=== PATIENT | female | born 1955 | race Caucasian/White ===

== ENCOUNTER 2023-05-14 10:11 | Inpatient (IN) | payer OTHER ==
[2023-05-14] MEDS ORDERED: Acetaminophen 325 MG TAB PO PRN (16:12)
[2023-05-14] MEDS ORDERED: hydrOXYzine 25 MG TAB PO PRN (16:12)
[2023-05-14] MEDS ORDERED: HYDROcodone/Acetaminophen 5/325 mg Tablet PO PRN (16:12)
[2023-05-14] MEDS ORDERED: Bisacodyl 5 MG TAB PO PRN (16:18)
[2023-05-14] MEDS ORDERED: Ondansetron ODT 4 MG TAB SL PRN (16:18)
[2023-05-14 19:38] VITALS: BMI 26.4
[2023-05-14] MEDS: Phenytoin Extended Release 100 MG CAP PO SCH (20:50)
[2023-05-14] MEDS: Senokot S 8.6-50 MG TAB PO SCH (20:50)
[2023-05-15 06:00] LABS: Hematocrit 38.6 % (36.0-47.0); Hemoglobin 12.7 g/dL (12.0-16.0); Mean Corpuscular Hemoglobin 34.4 pg (27.0-31.0); Red Blood Cell (RBC) Count 3.68 mill/uL (4.20-5.40); White Blood Cell (WBC) Count 7.8 10x3/uL (4.8-10.8)
[2023-05-15 06:01] LABS: #Basophils 0.1 thou/uL (0.0-0.2); #Eosinphils 0.3 thou/uL (0.0-0.7); #Lymphocytes 1.8 thou/uL (1.20-3.40); #Monocytes 0.7 thou/uL (0.11-0.59); #Neutrophils 4.9 thou/uL (1.40-6.50); %Basophils 1.1 % (0.0-1.0); %Eosinophils 3.7 % (0.0-10.0); %Lymphocytes 23.5 % (21.0-51.0); %Monocytes 8.9 % (0.0-10.0); %Neutrophils 62.8 % (42.0-75.0); Manual Diff?? NO; Mean Corpuscular HGB CONC 32.9 g/dL (32.0-36.0); Mean Platelet Volume 7.3 fL (7.4-10.4); Platelet Count 206 10x3/uL (130-400); RBC Distribution Width 12.2 % (11.5-14.5)
[2023-05-15 06:16] LABS: ALT (SGPT) 45 U/L (8-55); AST (SGOT) 20 U/L (5-34); Albumin 2.9 g/dL (3.4-4.8); Alkaline Phosphatase 64 U/L (40-110); Anion Gap 12 mmol/L (10-20); BUN (Urea Nitrogen) 13 mg/dL (9.8-20.1); Bilirubin, Total 0.2 mg/dL (0.2-1.2); Calc. Creatinine Clearance 112 mL/min (70-130); Calcium 8.4 mg/dL (7.8-10.44); Carbon Dioxide 29 mmol/L (23-31); Chloride 103 mmol/L (98-107); Estimated GFR 96; Globulin 2.4 g/dL (2.4-3.5); Glucose 88 mg/dL (80-115); Potassium 3.8 mmol/L (3.5-5.1); Protein, Total 5.3 g/dL (5.8-8.1); Sodium 140 mmol/L (136-145)
[2023-05-15] MEDS: Hydrochlorothiazide 25 MG TAB PO SCH (08:26)
[2023-05-15] MEDS: Losartan Potassium 50 MG TAB PO SCH (08:26)
[2023-05-15] MEDS: Senokot S 8.6-50 MG TAB PO SCH ×2 (08:26→21:14)
[2023-05-15] MEDS: predniSONE 20 MG TAB PO SCH (08:26)
[2023-05-15] MEDS: AMITIZA 24 MCG PO SCH (08:35)
[2023-05-15] MEDS: Phenytoin Extended Release 100 MG CAP PO SCH (21:13)
[2023-05-16] MEDS: Fluticasone Propionate Nasal Spray 16 gm Bottle NASAL SCH (08:39)
[2023-05-16] MEDS: Losartan Potassium 50 MG TAB PO SCH (08:41)
[2023-05-16] MEDS: Senokot S 8.6-50 MG TAB PO SCH ×2 (08:42→20:17)
[2023-05-16] MEDS: Hydrochlorothiazide 25 MG TAB PO SCH (08:42)
[2023-05-16] MEDS: predniSONE 20 MG TAB PO SCH (08:43)
[2023-05-16] MEDS: AMITIZA 24 MCG PO SCH (08:50)
[2023-05-16] MEDS ORDERED: Bisacodyl 10 MG SUPP PR PRN (12:29)
[2023-05-16] MEDS: Phenytoin Extended Release 100 MG CAP PO SCH (20:17)
[2023-05-17] MEDS: AMITIZA 24 MCG PO SCH (07:57)
[2023-05-17] MEDS: Fluticasone Propionate Nasal Spray 16 gm Bottle NASAL SCH (07:58)
[2023-05-17] MEDS: Hydrochlorothiazide 25 MG TAB PO SCH (07:59)
[2023-05-17] MEDS: Losartan Potassium 50 MG TAB PO SCH (07:59)
[2023-05-17] MEDS: Senokot S 8.6-50 MG TAB PO SCH ×2 (08:00→20:48)
[2023-05-17] MEDS: predniSONE 20 MG TAB PO SCH (08:00)
[2023-05-17] MEDS: Phenytoin Extended Release 100 MG CAP PO SCH (20:48)
[2023-05-17 20:57] VITALS: BP 173/84; TEMP 98.4
[2023-05-19] MEDS ORDERED: predniSONE 20 MG TAB PO SCH (09:00)
== END 2023-05-18 00:17 | disposition short-term general hospital (02) | DRG 948 ==
LOC: NAV ACUTE 19:02
PROVIDERS: ADMIT Family Medicine; ATTEND Family Medicine
DX: R53.1 Weakness (principal); S72.032A Displaced midcervical fracture of left femur, initial encounter for closed fracture; C71.9 Malignant neoplasm of brain, unspecified; R53.81 Other malaise; I10 Essential (primary) hypertension; Z96.652 Presence of left artificial knee joint; K59.00 Constipation, unspecified; Z98.890 Other specified postprocedural states
CPT/HCPCS: 36415; 80053; 85025; J7512